=== PATIENT | male | born 1995 | race Two or more races ===

== ENCOUNTER 2018-06-05 14:24 | Emergency (ER) | payer OTHER ==
[2018-06-05] MEDS ORDERED: IBUPROFEN 600 MG TAB PO ONE (15:11)
[2018-06-05] MEDS ORDERED: NS 1,000 ML IV ONE ×3 (15:25→17:02)
--- NOTE | 2018-06-05 15:37 | EDPHY ---
H & P Stated Complaint: chills, body aches, sore throat, cough, fatigue x 6 days Time Seen by Provider: 06/05/18 15:09 HPI/ROS: CHIEF COMPLAINT: Fever, weakness HISTORY OF PRESENT ILLNESS: 22-year-old male presents with fever and weakness . Onset of fever 5 days ago. The fever is associated with sore throat, moderate and persistent. Also has diffuse myalgias, excessive fatigue and intermittent headache. Symptoms temporarily alleviated with ibuprofen, but then return. No cough or shortness of breath. Tolerating oral fluids well. No vomiting or diarrhea. Multiple ill contacts. Was in [place] 6 weeks ago in a large city only, no other travel. REVIEW OF SYSTEMS: complete 10 point ROS reviewed and is negative except for the noted elements in the HPI - Medical/Surgical History Hx Asthma: No Hx Chronic Respiratory Disease: No Hx Diabetes: No Hx Cardiac Disease: No Hx Renal Disease: No Hx Cirrhosis: No Hx Alcoholism: No Hx HIV/AIDS: No Hx Splenectomy or Spleen Trauma: No Other PMH: denies - Social History Smoking Status: Never smoked Additional Social History: Student at [employer] - Physical Exam Exam: General Appearance: Alert, pleasant, nontoxic-appearing Eyes: Pupils equal and round, no conjunctival pallor or injection ENT, Mouth: Mucous membranes dry, pharyngeal erythema Neck: Normal inspection Respiratory: Lungs are clear to auscultation Cardiovascular: Regular tachycardia Gastrointestinal: Abdomen is soft and nontender Neurological: A&O, nonfocal exam Skin: Warm and dry, no rash Extremities: Normal inspection Psychiatric: Mood and affect normal Constitutional: Initial Vital Signs Temperature (C) 37.9 C 06/05/18 14:31 Heart Rate 122 H 06/05/18 14:31 Respiratory Rate 18 06/05/18 14:31 Blood Pressure 99/69 L 06/05/18 14:31 O2 Sat (%) 95 06/05/18 14:31 O2 Delivery Mode Room Air Allergies/Adverse Reactions: No Known Allergies Allergy (Unverified 06/05/18 14:30) Home Medications: Medication Instructions Recorded Azithromycin 06/05/18 Medical Decision Making - Diagnostics Imaging Results: Imaging Impressions Chest X-Ray 06/05/18 15:10 Impression: No acute pulmonary disease. Imaging: I viewed and interpreted images myself ED Course/Re-evaluation: This patient presents with a flu-like illness and dehydration. Initial heart rate 120s. IV normal saline 1 L and ibuprofen 600 mg orally given. Fever persisted so Tylenol 1 g orally given. Ultimately the patient was given 3 L of normal saline and felt much better after IV fluids and fever reduction. Fever instructions given. Will follow up for worsening symptoms or any concerns. Differential Diagnosis: Differential diagnosis includes and no particular order pyelonephritis, cholecystitis, influenza, cellulitis, pneumonia, abscess, meningitis. - Data Points Laboratory Results: Laboratory Results 06/05/18 15:13 06/05/18 15:13 06/05/18 06/05/18 06/05/18 Unknown 15:13 15:13 WBC RBC Hgb Hct MCV MCH MCHC RDW Plt Count MPV Neut % (Auto) Lymph % (Auto) [place] % (Auto) Eos % (Auto) Baso % (Auto) Nucleat RBC Rel Count Absolute Neuts (auto) Absolute Lymphs (auto) Absolute Monos (auto) Absolute Eos (auto) Absolute Basos (auto) Absolute Nucleated RBC Immature Gran % Immature Gran # Sodium Potassium Chloride Carbon Dioxide Anion Gap BUN Creatinine Estimated GFR Glucose Calcium Nasal Influenza A PCR Nasal Influenza B PCR Monoscreen NEGATIVE (NEGATIVE) Group A Strep Screen NEGATIVE (NEGATIVE) Group A Strep DNA Pending 06/05/18 06/05/18 06/05/18 15:13 15:13 14:50 WBC 6.13 10^3/uL 10^3/uL (3.80-9.50) RBC 4.78 10^6/uL 10^6/uL (4.40-6.38) Hgb 13.7 g/dL g/dL (13.7-17.5) Hct 39.8 % L % (40.0-51.0) MCV 83.3 fL fL (81.5-99.8) MCH 28.7 pg pg (27.9-34.1) MCHC 34.4 g/dL g/dL (32.4-36.7) RDW 12.1 % % (11.5-15.2) Plt Count 92 10^3/uL L 10^3/uL (150-400) MPV 11.9 fL H fL (8.7-11.7) Neut % (Auto) 81.6 % H % (39.3-74.2) Lymph % (Auto) 10.9 % L % (15.0-45.0) [place] % (Auto) 6.9 % % (4.5-13.0) Eos % (Auto) 0.0 % L % (0.6-7.6) Baso % (Auto) 0.3 % % (0.3-1.7) Nucleat RBC Rel Count 0.0 % % (0.0-0.2) Absolute Neuts (auto) 5.00 10^3/uL 10^3/uL (1.70-6.50) Absolute Lymphs (auto) 0.67 10^3/uL L 10^3/uL (1.00-3.00) Absolute Monos (auto) 0.42 10^3/uL 10^3/uL (0.30-0.80) Absolute Eos (auto) 0.00 10^3/uL L 10^3/uL (0.03-0.40) Absolute Basos (auto) 0.02 10^3/uL 10^3/uL (0.02-0.10) Absolute Nucleated RBC 0.00 10^3/uL 10^3/uL (0-0.01) Immature Gran % 0.3 % % (0.0-1.1) Immature Gran # 0.02 10^3/uL 10^3/uL (0.00-0.10) Sodium 137 mEq/L mEq/L (135-145) Potassium 3.8 mEq/L mEq/L (3.3-5.0) Chloride 103 mEq/L mEq/L (97-110) Carbon Dioxide 23 mEq/l mEq/l (22-31) Anion Gap 11 mEq/L mEq/L (8-16) BUN 9 mg/dL mg/dL (7-23) Creatinine 0.9 mg/dL mg/dL (0.7-1.3) Estimated GFR > 60 Glucose 141 mg/dL H mg/dL (70-100) Calcium 8.8 mg/dL mg/dL (8.5-10.4) Nasal Influenza A PCR NEGATIVE FOR FLU A (NEGATIVE) Nasal Influenza B PCR NEGATIVE FOR FLU B (NEGATIVE) Monoscreen Group A Strep Screen Group A Strep DNA Medications Given: Discontinued Medications Acetaminophen (Tylenol) 1,000 mg PO EDNOW ONE Stop: 06/05/18 16:04 Last Admin: 06/05/18 16:04 Dose: 1,000 mg Dexamethasone (Decadron) 6 mg PO EDNOW ONE Stop: 06/05/18 17:03 Last Admin: 06/05/18 17:04 Dose: 6 mg Sodium Chloride (Ns) 1,000 mls @ 3,000 mls/hr IV ONCE ONE Stop: 06/05/18 15:44 Last Admin: 06/05/18 15:26 Dose: 1,000 mls Sodium Chloride (Ns) 1,000 mls @ 3,000 mls/hr IV ONCE ONE Stop: 06/05/18 16:22 Last Admin: 06/05/18 16:05 Dose: 1,000 mls Sodium Chloride (Ns) 1,000 mls @ 3,000 mls/hr IV ONCE ONE Stop: 06/05/18 17:21 Last Admin: 06/05/18 17:04 Dose: 1,000 mls Ibuprofen (Motrin) 600 mg PO EDNOW ONE Stop: 06/05/18 15:12 Last Admin: 06/05/18 15:24 Dose: 600 mg Departure - Departure Disposition: Home, Routine, Self-Care Clinical Impression: Viral syndrome Condition: Good Instructions: Viral Syndrome (ED) Additional Instructions: Alternate Tylenol and ibuprofen every 3 hr for fever and pain control. Drink plenty of fluids. Return for worsening symptoms or any concerns. Referrals: Rikki MENDOZA [Clinic] - As per Instructions
[2018-06-05] MEDS ORDERED: ACETAMINOPHEN 500 MG TAB PO ONE (16:03)
[2018-06-05 16:24] LABS: PLATELET COUNT 92 10^3/uL (150-400)
[2018-06-05] MEDS ORDERED: DEXAMETHASONE 4 MG TAB ONE (17:00)
[2018-06-05] MEDS ORDERED: DEXAMETHASONE 4 MG TAB PO ONE (17:02)
[2018-06-05 17:57] VITALS: BP 120/54
== END 2018-06-05 18:00 | disposition home or self-care (01) ==
DX: B33.8 Other specified viral diseases (principal); E86.0 Dehydration

== ENCOUNTER 2018-06-08 16:19 | Inpatient (IN) | payer OTHER ==
[2018-06-08] MEDS ORDERED: NS 1,000 ML IV ONE ×2 (16:31)
--- NOTE | 2018-06-08 16:31 | EDPHY ---
H & P Source: Patient Exam Limitations: No limitations - Medical/Surgical History Hx Asthma: No Hx Chronic Respiratory Disease: No Hx Diabetes: No Hx Cardiac Disease: No Hx Renal Disease: No Hx Cirrhosis: No Hx Alcoholism: No Hx HIV/AIDS: No Hx Splenectomy or Spleen Trauma: No Other PMH: denies - Social History Smoking Status: Never smoked Time Seen by Provider: 06/08/18 16:26 HPI/ROS: HPI: This is a 22-year-old male who presents with Chief Complaint: Headache and fever Location: Back of neck Quality: Pain Duration: 48 hr Signs and Symptoms: + fever, no nausea, no vomiting, no diarrhea, no urinary symptoms, no chest pain, no shortness of breath, no wheezing, no cough, no sore throat, + neck stiffness, no joint pain, no swollen glands, no ear pain, no rash , no ear pain, no nasal congestion Timing: Worsening Severity: Moderate Context: Patient is a student at [employer], presents from [facility] with concerns of meningitis. Started to have a fever TMax 102F. Patient was seen in the clinic on Thursday for fever and headache. Strep test and influenza test along with laboratory studies including blood cultures were ordered. Patient was started on azithromycin. Patient was called on Thursday that his strep and influenza were negative and advised to stop taking the azithromycin which he had taken 3 doses total. Patient reports that he is having fevers at home as high as 103.5 taken orally daily. Patient initially started to have a headache behind both eyes but in the last 48 hr that has moved to the base of his neck and accompanied by neck stiffness. He was again seen at [facility] today and given 1 L of fluid. He reports that ibuprofen makes his headache worse. Tylenol will transiently improve his fever. Patient reports that he had influenza and strep test taken twice and they were negative. Per patient, laboratory studies were "normal" and blood cultures were "inconclusive." Patient traveled from [facility] 1 month ago. Patient denies any altered mental status, photophobia, vomiting, seizures. Modifying Factors: Tylenol Comment: ROS: A comprehensive 10 system review of systems is otherwise negative aside from elements mentioned in the history of present illness. MEDICAL/SURGICAL/SOCIAL HISTORY: Medical history: Generally healthy. Does not take any regular medications. Surgical history: Denies Social history: Never smoked. Family history noncontributory. CONSTITUTIONAL: Ill appearing [place] young adult male, awake and alert, no obvious distress HEENT: Atraumatic and normocephalic, PERRL, EOMI. Nares patent; no rhinorrhea; no nasal mucosal edema. Tympanic membranes clear. Oropharynx clear, no exudate and dry mucous membranes and lips. Airway patent. No lymphadenopathy. + mild nuchal rigidity, negative Kernig sign, positive jolt test, negative Brudzinski's sign. Cardiovascular: Normal S1/S2, regular rate, regular rhythm, without murmur rub or gallop. PULMONARY/CHEST: Symmetrical and nontender. Clear to auscultation bilaterally. Good air movement. No accessory muscle usage. ABDOMEN: Soft, nondistended, nontender, no rebound, no guarding, no peritoneal signs, no masses or organomegaly. No CVAT. EXTREMITIES: 2/2 pulses, strength 5/5, no deformities, no clubbing, no cyanosis or edema. NEUROLOGICAL: no focal neuro deficits. GCS 15. SKIN: Warm and dry, no erythema. no rash. Good capillary refill. ([place],Terra) Constitutional: Initial Vital Signs Temperature (C) 37.2 C 06/08/18 16:26 Heart Rate 98 06/08/18 16:26 Respiratory Rate 16 06/08/18 16:26 Blood Pressure 134/69 H 06/08/18 16:26 O2 Sat (%) 99 06/08/18 16:26 O2 Delivery Mode Room Air Allergies/Adverse Reactions: No Known Allergies Allergy (Verified 06/08/18 16:24) Home Medications: Medication Instructions Recorded NK [No Known Home Meds] 06/08/18 Medical Decision Making - Diagnostics Imaging Results: Imaging Impressions Head CT 06/08/18 16:32 Impression: There is no acute intracranial abnormality identified on this unenhanced CT evaluation. If there is further clinical concern regarding the patient's symptoms, MR imaging is suggested, if not otherwise contraindicated. ED Course/Re-evaluation: Vital signs reviewed and stable upon arrival. No systemic signs. Patient has a headache accompanied by fever neck stiffness. Concern for meningitis. Head CT scan, laboratory studies including blood culture and lactic acid, 1 L IV fluids ordered as received 1 liter at [facility] 165: Lactic acid 2.5. 1716: Called by Dr. Keon, Head CT scan shows no acute intracranial process. 171: Lumbar puncture performed by Dr. Chester. IV Toradol ordered 182: Notified by nurse that temp 39.2C. 1000 mg of Tylenol given. Labs reviewed. WBC 10 K with left shift 1839: CSF fluid shows WBCs 278, neutrophils pending Respiratory pathogen swab ordered 184: ED decision to consult for admission. Spoke with hospitalist, Dr. Cristobal, kindly agrees to admit patient to provide further care. Spoke with Infectious Disease, Dr. Rashard Rooney, who requests ordering West Nile serum and CSF as well as enterovirus. Neutrophil count is pending the time of consultation. If neutrophils are elevated, Dr. Rooney recommends Vancomycin and ceftriaxone but at this time it appears to be predominantly viral nature. 1908: Repeat lactic acid 1.9. CSF shows [address] Rooney on neutrophils and he reports start IV vancomycin and IV ceftriaxone. This patient was seen under the supervision of my secondary supervising physician. I evaluated care for this patient independently. Discussed this patient with Dr. Chester who did see the patient. (Gege Gonzalez) Independent physician evaluation: I evaluated and participated in the management of the patient. I also evaluated the patient independently. My co-signature indicates that I have reviewed this chart and I agree with the findings and plan of care as documented. My personal H&P findings include: The patient presents the emergency department with fever, headache and neck stiffness for the past several days. He was evaluated ordered for without a clear source of his symptoms. Given concerns for possible meningitis he was referred to the ED. The patient does complain of a bifrontal headache and nuchal rigidity. He denies any acute neurologic symptoms. Physical exam: General Appearance: Alert, appears uncomfortable Eyes: Pupils equal and round no pallor or injection ENT, Mouth: Mucous membranes moist Respiratory: There are no retractions, lungs are clear to auscultation Cardiovascular: Regular rate and rhythm Gastrointestinal: Abdomen is soft and nontender, no masses, bowel sounds normal Neurological: A&O, normal motor function, normal sensory exam, normal cranial nerves Skin: Warm and dry, no rashes Musculoskeletal: Mild meningeal symptoms noted with forward flexion Extremities: symmetrical, full range of motion Psychiatric: Patient is oriented X 3, there is no agitation ED course: Noncontrast head CT scan demonstrates no evidence of a space-occupying lesion or abscess. The patient was verbally consented to undergo lumbar puncture which was performed by myself without complication. CSF does demonstrate evidence of a elevated white blood cell count without significant red blood cells. The patient does have a slight left shift. Normal protein and glucose are noted. Consultation was made with Dr. Rooney from Infectious Disease who recommends empiric treatment with vancomycin and ceftriaxone. Additional viral serology testing has been ordered. The patient will be admitted to the hospital service for observation this evening. The case was discussed with Dr. Monika Cristobal at 7:00 p.m. Procedure: Procedure: Lumbar puncture. Indication: headache After verbal informed consent from patient explaining the risks including infection, bleeding, and neurologic damage, a lumbar puncture was performed after the patient was prepped and draped in the usual fashion. The back was anesthetized with 1% lidocaine. Approximately 4 cc of clear fluid was obtained. Opening pressure was not obtained. There were no complications. The procedure was performed by myself. (Vj Chester) Differential Diagnosis: Differential diagnosis includes tension headache, meningitis, encephalitis, viral syndrome, sinusitis, dehydration. (Gege Gonzalez) - Data Points Laboratory Results: Laboratory Results 06/08/18 16:40 06/08/18 16:40 06/08/18 06/08/18 06/08/18 18:30 17:32 17:25 WBC RBC Hgb Hct MCV MCH MCHC RDW Plt Count MPV Neut % (Auto) Lymph % (Auto) [place] % (Auto) Eos % (Auto) Baso % (Auto) Nucleat RBC Rel Count Absolute Neuts (auto) Absolute Lymphs (auto) Absolute Monos (auto) Absolute Eos (auto) Absolute Basos (auto) Absolute Nucleated RBC Immature Gran % Immature Gran # Platelet Estimate VBG Lactic Acid 1.2 mmol/L mmol/L (0.7-2.1) Sodium Potassium Chloride Carbon Dioxide Anion Gap BUN Creatinine Estimated GFR Glucose Calcium Total Bilirubin Conjugated Bilirubin Unconjugated Bilirubin AST ALT Alkaline Phosphatase Total Protein Albumin Fl Pathologist Review Pending CSF Tube Number 1 CSF Appearance CLEAR (CLEAR) CSF Color COLORLESS (COLORLESS) CSF Supernatant TNP CSF WBC 278 /mm3 H /mm3 (0-5) CSF RBC 0 /mm3 /mm3 (0-0) CSF Neutrophils % 65 % H % (0-6) CSF Lymphocytes % 28 % % (0-100) CSF Monos/Macrophage % 7 % % (0-45) CSF Glucose 56 mg/dL mg/dL (50-75) CSF Total Protein 53 mg/dL mg/dL (12-60) CSF West Nile IgG Ab Pending CSF West Nile IgM Ab Pending CSF West Nile Interp Pending West Nile Virus IgG Ab Pending West Nile Virus IgM Ab Pending West Nile Interp Pending Enterovirus Source Pending Enterovirus RNA (PCR) Pending 06/08/18 06/08/18 06/08/18 17:25 16:40 16:40 WBC 10.10 10^3/uL H 10^3/uL (3.80-9.50) RBC 5.13 10^6/uL 10^6/uL (4.40-6.38) Hgb 14.7 g/dL g/dL (13.7-17.5) Hct 43.1 % % (40.0-51.0) MCV 84.0 fL fL (81.5-99.8) MCH 28.7 pg pg (27.9-34.1) MCHC 34.1 g/dL g/dL (32.4-36.7) RDW 12.7 % % (11.5-15.2) Plt Count TNP MPV TNP Neut % (Auto) 84.9 % H % (39.3-74.2) Lymph % (Auto) 9.4 % L % (15.0-45.0) [place] % (Auto) 4.9 % % (4.5-13.0) Eos % (Auto) 0.1 % L % (0.6-7.6) Baso % (Auto) 0.2 % L % (0.3-1.7) Nucleat RBC Rel Count 0.0 % % (0.0-0.2) Absolute Neuts (auto) 8.58 10^3/uL H 10^3/uL (1.70-6.50) Absolute Lymphs (auto) 0.95 10^3/uL L 10^3/uL (1.00-3.00) Absolute Monos (auto) 0.49 10^3/uL 10^3/uL (0.30-0.80) Absolute Eos (auto) 0.01 10^3/uL L 10^3/uL (0.03-0.40) Absolute Basos (auto) 0.02 10^3/uL 10^3/uL (0.02-0.10) Absolute Nucleated RBC 0.00 10^3/uL 10^3/uL (0-0.01) Immature Gran % 0.5 % % (0.0-1.1) Immature Gran # 0.05 10^3/uL 10^3/uL (0.00-0.10) Platelet Estimate Pending VBG Lactic Acid 2.5 mmol/L H mmol/L (0.7-2.1) Sodium Potassium Chloride Carbon Dioxide Anion Gap BUN Creatinine Estimated GFR Glucose Calcium Total Bilirubin Conjugated Bilirubin Unconjugated Bilirubin AST ALT Alkaline Phosphatase Total Protein Albumin Fl Pathologist Review Pending CSF Tube Number 4 CSF Appearance CLEAR (CLEAR) CSF Color COLORLESS (COLORLESS) CSF Supernatant TNP CSF WBC 258 /mm3 H /mm3 (0-5) CSF RBC 0 /mm3 /mm3 (0-0) CSF Neutrophils % 54 % H % (0-6) CSF Lymphocytes % 44 % % (0-100) CSF Monos/Macrophage % 2 % % (0-45) CSF Glucose CSF Total Protein CSF West Nile IgG Ab CSF West Nile IgM Ab CSF West Nile Interp West Nile Virus IgG Ab West Nile Virus IgM Ab West Nile Interp Enterovirus Source Enterovirus RNA (PCR) 06/08/18 16:40 WBC RBC Hgb Hct MCV MCH MCHC RDW Plt Count MPV Neut % (Auto) Lymph % (Auto) [place] % (Auto) Eos % (Auto) Baso % (Auto) Nucleat RBC Rel Count Absolute Neuts (auto) Absolute Lymphs (auto) Absolute Monos (auto) Absolute Eos (auto) Absolute Basos (auto) Absolute Nucleated RBC Immature Gran % Immature Gran # Platelet Estimate VBG Lactic Acid Sodium 137 mEq/L mEq/L (135-145) Potassium 3.7 mEq/L mEq/L (3.3-5.0) Chloride 98 mEq/L mEq/L (97-110) Carbon Dioxide 25 mEq/l mEq/l (22-31) Anion Gap 14 mEq/L mEq/L (8-16) BUN 11 mg/dL mg/dL (7-23) Creatinine 1.0 mg/dL mg/dL (0.7-1.3) Estimated GFR > 60 Glucose 118 mg/dL H mg/dL (70-100) Calcium 8.8 mg/dL mg/dL (8.5-10.4) Total Bilirubin 0.9 mg/dL mg/dL (0.1-1.4) Conjugated Bilirubin 0.2 mg/dL mg/dL (0.0-0.5) Unconjugated Bilirubin 0.7 mg/dL mg/dL (0.0-1.1) AST 29 IU/L IU/L (17-59) ALT 58 IU/L IU/L (21-72) Alkaline Phosphatase 79 IU/L IU/L (38-126) Total Protein 7.5 g/dL g/dL (6.3-8.2) Albumin 3.9 g/dL g/dL (3.5-5.0) Fl Pathologist Review CSF Tube Number CSF Appearance CSF Color CSF Supernatant CSF WBC CSF RBC CSF Neutrophils % CSF Lymphocytes % CSF Monos/Macrophage % CSF Glucose CSF Total Protein CSF West Nile IgG Ab CSF West Nile IgM Ab CSF West Nile Interp West Nile Virus IgG Ab West Nile Virus IgM Ab West Nile Interp Enterovirus Source Enterovirus RNA (PCR) Microbiology Results: MICROBIOLOGY 06/08/18 17:32 Cerebral Spinal Fluid Gram Stain - Final Medications Given: Discontinued Medications Acetaminophen (Tylenol) 1,000 mg PO EDNOW ONE Stop: 06/08/18 18:18 Last Admin: 06/08/18 18:24 Dose: 1,000 mg Sodium Chloride (Ns) 1,000 mls @ 0 mls/hr IV ONCE ONE; Wide Open PRN Reason: Protocol Stop: 06/08/18 16:32 Last Admin: 06/08/18 17:26 Dose: Not Given Sodium Chloride (Ns) 1,000 mls @ 0 mls/hr IV ONCE ONE; Wide Open PRN Reason: Protocol Stop: 06/08/18 16:32 Last Admin: 06/08/18 17:26 Dose: Not Given Sodium Chloride (Ns) 2,700 mls @ 5,400 mls/hr 30 ml/kg infuse over 30 min ( 2700 ml) IV EDNOW ONE PRN Reason: Protocol Stop: 06/08/18 17:20 Last Admin: 06/08/18 16:56 Dose: 2,700 mls Ketorolac Tromethamine (Toradol) 15 mg IVP EDNOW ONE Stop: 06/08/18 17:30 Last Admin: 10/02/18 17:33 Dose: 15 mg Departure - Departure Disposition: [facility] Inpatient Acute Clinical Impression: Meningitis Condition: Fair
[2018-06-08] MEDS ORDERED: NS 2,700 ML IV ONE (16:51)
[2018-06-08] MEDS ORDERED: KETOROLAC 15 MG/1 ML SDV IVP ONE (17:29)
[2018-06-08] MEDS ORDERED: ACETAMINOPHEN 500 MG TAB PO ONE (18:17)
[2018-06-08] MEDS ORDERED: VANCOMYCIN HCL/NORMAL SALINE 250 ML IV ONE (19:09)
--- NOTE | 2018-06-08 19:49 | PDGENHP ---
History and Physical - Chief Complaint Headache and fever - History of Present Illness 22 y/o male presents to ED due to ongoing fever, headaches, and neck stiffness. It began last Thursday. Headache is predominantly located in the back of his head and there are no alleviating or aggravating factors. Tylenol seems to help his fevers but not his headaches. He lost his appetite and has had difficulty sleeping. He denies SOB, chest pains, vision changes, photophobia, seizures. He is being admitted for further diagnostic work-up and pain management. History Information - Allergies/Home Medication List Allergies/Adverse Reactions: No Known Allergies Allergy (Verified 06/08/18 16:24) Home Medications: Acetaminophen [Tylenol ES 500 mg (*)] 1,000 mg PO Q8H PRN 06/08/18 [Last Taken 06/07/18] Ibuprofen [Motrin (*)] 200 mg PO Q6H PRN 06/08/18 [Last Taken 06/07/18] I have personally reviewed and updated: family history, medical history, social history, surgical history - Past Medical History no pertinent PMH - Surgical History Reports: no pertinent surgical hx - Family History Additional family history: Grandfather - Diabetes - Social History Smoking Status: Never smoked Alcohol Use: None Drug Use: None Additional social history: Lives with two roommates off campus Review of Systems Review of Systems: Lab Data and Imaging Reviewed. ROS: 10pt was reviewed & negative except for what was stated in HPI & below Constitutional: Reports: diaphoresis, fever, malaise, weakness EENMT: Reports: no symptoms Cardiac: Reports: no symptoms Respiratory: Reports: no symptoms Gastrointestinal: Reports: no symptoms Genitourinary: Reports: no symptoms Muscolosketal: Reports: neck pain Skin: Reports: no symptoms Neurological: Reports: headache, weakness Hematologic/Lymphatic: Reports: no symptoms Immunologic/Allergy: Reports: no symptoms Physical Exam Physical Exam: Temp Pulse Resp BP Pulse Ox 37.1 C 85 16 125/85 H 96 06/08/18 19:28 06/08/18 19:28 06/08/18 19:28 06/08/18 19:28 06/08/18 19:28 Constitutional: chronically ill appearing Eyes: PERRL, anicteric sclera, EOMI Ears, Nose, Mouth, Throat: moist mucous membranes, hearing normal, ears appear normal, no oral mucosal ulcers Cardiovascular: regular rate and rhythym, no murmur, rub, or gallop, No edema Respiratory: no respiratory distress, no rales or rhonchi, clear to auscultation Gastrointestinal: normoactive bowel sounds, soft, non-tender abdomen, no palpable masses Genitourinary: no bladder fullness, no bladder tenderness Skin: warm, normal color, no rashes or abrasions, no fluctuance, no induration, No mottled Musculoskeletal: full muscle strength, normal joint ROM, no joint effusions Neurologic: AAOx3, sensation intact bilaterally, other (Negative Kernig's and Brudzinski's sign) Psychiatric: interacting appropriately, not anxious, not encephalopathic, thought process linear Lymph, Heme, Immunologic: no cervical LAD, no supraclavicular LAD Lab Data & Imaging Review 06/08/18 16:40 06/08/18 16:40 WBC 10.10 10^3/uL (3.80-9.50) H 06/08/18 16:40 RBC 5.13 10^6/uL (4.40-6.38) 06/08/18 16:40 Hgb 14.7 g/dL (13.7-17.5) 06/08/18 16:40 Hct 43.1 % (40.0-51.0) 06/08/18 16:40 MCV 84.0 fL (81.5-99.8) 06/08/18 16:40 MCH 28.7 pg (27.9-34.1) 06/08/18 16:40 MCHC 34.1 g/dL (32.4-36.7) 06/08/18 16:40 RDW 12.7 % (11.5-15.2) 06/08/18 16:40 Plt Count TNP 06/08/18 16:40 MPV TNP 06/08/18 16:40 Neut % (Auto) 84.9 % (39.3-74.2) H 06/08/18 16:40 Lymph % (Auto) 9.4 % (15.0-45.0) L 06/08/18 16:40 Mcclain % (Auto) 4.9 % (4.5-13.0) 06/08/18 16:40 Eos % (Auto) 0.1 % (0.6-7.6) L 06/08/18 16:40 Baso % (Auto) 0.2 % (0.3-1.7) L 06/08/18 16:40 Nucleat RBC Rel Count 0.0 % (0.0-0.2) 06/08/18 16:40 Absolute Neuts (auto) 8.58 10^3/uL (1.70-6.50) H 06/08/18 16:40 Absolute Lymphs (auto) 0.95 10^3/uL (1.00-3.00) L 06/08/18 16:40 Absolute Monos (auto) 0.49 10^3/uL (0.30-0.80) 06/08/18 16:40 Absolute Eos (auto) 0.01 10^3/uL (0.03-0.40) L 06/08/18 16:40 Absolute Basos (auto) 0.02 10^3/uL (0.02-0.10) 06/08/18 16:40 Absolute Nucleated RBC 0.00 10^3/uL (0-0.01) 06/08/18 16:40 Immature Gran % 0.5 % (0.0-1.1) 06/08/18 16:40 Immature Gran # 0.05 10^3/uL (0.00-0.10) 06/08/18 16:40 VBG Lactic Acid 1.2 mmol/L (0.7-2.1) 06/08/18 18:30 Sodium 137 mEq/L (135-145) 06/08/18 16:40 Potassium 3.7 mEq/L (3.3-5.0) 06/08/18 16:40 Chloride 98 mEq/L (97-110) 06/08/18 16:40 Carbon Dioxide 25 mEq/l (22-31) 06/08/18 16:40 Anion Gap 14 mEq/L (8-16) 06/08/18 16:40 BUN 11 mg/dL (7-23) 06/08/18 16:40 Creatinine 1.0 mg/dL (0.7-1.3) 06/08/18 16:40 Estimated GFR > 60 06/08/18 16:40 Glucose 118 mg/dL (70-100) H 06/08/18 16:40 Calcium 8.8 mg/dL (8.5-10.4) 06/08/18 16:40 Total Bilirubin 0.9 mg/dL (0.1-1.4) 06/08/18 16:40 Conjugated Bilirubin 0.2 mg/dL (0.0-0.5) 06/08/18 16:40 Unconjugated Bilirubin 0.7 mg/dL (0.0-1.1) 06/08/18 16:40 AST 29 IU/L (17-59) 06/08/18 16:40 ALT 58 IU/L (21-72) 06/08/18 16:40 Alkaline Phosphatase 79 IU/L (38-126) 06/08/18 16:40 Total Protein 7.5 g/dL (6.3-8.2) 06/08/18 16:40 Albumin 3.9 g/dL (3.5-5.0) 06/08/18 16:40 CSF Tube Number 1 06/08/18 17:32 CSF Appearance CLEAR (CLEAR) 06/08/18 17:32 CSF Color COLORLESS (COLORLESS) 06/08/18 17:32 CSF Supernatant TNP 06/08/18 17:32 CSF WBC 278 /mm3 (0-5) H 06/08/18 17:32 CSF RBC 0 /mm3 (0-0) 06/08/18 17:32 CSF Neutrophils % 65 % (0-6) H 06/08/18 17:32 CSF Lymphocytes % 28 % (0-100) 06/08/18 17:32 CSF Monos/Macrophage % 7 % (0-45) 06/08/18 17:32 CSF Glucose 56 mg/dL (50-75) 06/08/18 17:32 CSF Total Protein 53 mg/dL (12-60) 06/08/18 17:32 Assessment & Plan Assessment: 22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 headaches, and neck stiffness suggesting acute meningitis, suspecting viral meningitis. Plan: #Viral Meningitis -ID consulted and aware -Broad-spectrum antibiotics initiated and will continue until blood cultures result -Will re-assess choice of antibiotics once blood cultures result #Fever -Continue use of Tylenol PRN -Ice packs OK -IVF -Encourage use of IS -Encourage deep breathing -Encourage oral fluids #Pain -IV/PO medications PRN Diet: Regular Code: Full VTE ppx: Moderate - if tolerated, ambulate. SCDs while in bed. Dispo: Admit to inpatient
[2018-06-08] MEDS ORDERED: ONDANSETRON 4 MG/2 ML VIAL IVP PRN (20:06)
[2018-06-08] MEDS ORDERED: HYDROmorphONE/DILAUDID 1 MG/ML INJ IVP PRN (20:06)
[2018-06-08] MEDS ORDERED: ONDANSETRON DISINTEGRATING 4 MG TAB PO PRN (20:06)
[2018-06-08] MEDS ORDERED: oxyCODONE IR 5 MG TAB PO PRN (20:06)
[2018-06-08] MEDS ORDERED: diphenhydrAMINE 25 MG CAP PO PRN (20:06)
[2018-06-08] MEDS ORDERED: VANCOMYCIN 500 MG in D5W 100 ML IV ONE (20:30)
--- NOTE | 2018-06-08 21:48 | HOSPPROG ---
Hospitalist Progress Note Assessment/Plan: Patient discussed with Toshia Escobar [employer] as well as personally seen and examined by me. Agree with H&P as outlined by Toshia. Patient sitting comfortably in bed. 1. Meningitis - suspect early viral > bacterial - however lots of neutrophils seen in CSF differential -ID consulted - continue IV ceftriaxone and IV Vanco until cultures negative 2. Sepsis - as evidenced by fever, tachycardia, leukocytosis (although mild) -still suspect viral > bacterial but await blood cultures. -lactate cleared with hydration Objective: Vital Signs Temp Pulse Resp BP Pulse Ox 37.1 C 79 16 116/53 L 97 06/08/18 20:00 06/08/18 20:00 06/08/18 20:00 06/08/18 20:00 06/08/18 20:00 Microbiology 06/08/18 19:00 Respiratory Panel (PCR) - Final Nasal, Sinus - Swab No Organism Detected 06/07/18 06/08/18 06/09/18 05:59 05:59 05:59 Intake Total [address] - negative d/w [facility] ER physician regarding ER course Laboratory Tests 06/08/18 06/08/18 17:25 17:32 CSF WBC 258 H 278 H CSF Neutrophils % 54 H 65 H CSF Lymphocytes % 44 28 - Physical Exam Constitutional: no apparent distress, appears nourished, not in pain Cardiovascular: regular rate and rhythym, no murmur, rub, or gallop Respiratory: no respiratory distress, no rales or rhonchi, clear to auscultation Gastrointestinal: normoactive bowel sounds, soft, non-tender abdomen, no palpable masses Skin: no rashes or abrasions, no fluctuance, no induration Neurologic: AAOx3, sensation intact bilaterally Psychiatric: interacting appropriately, not anxious, not encephalopathic, thought process linear ICD10 Worksheet Patient Problems: Problems Problem Status Onset Meningitis Acute
[2018-06-09] MEDS: ACETAMINOPHEN 325 MG TAB PO PRN ×3 (02:40→19:15)
[2018-06-09 05:16] LABS: PLATELET COUNT 169 10^3/uL (150-400)
[2018-06-09] MEDS ORDERED: VANCOMYCIN 1.5 GM in NS 250 ML IV SCH (09:00)
--- NOTE | 2018-06-09 10:45 | GCON ---
INFECTIOUS DISEASE CONSULTATION DATE OF CONSULTATION: 06/09/2018 REFERRING PHYSICIAN: Monika Cristobal MD REASON FOR CONSULTATION: Meningitis. HISTORY OF PRESENT ILLNESS: A 22-year-old healthy male who is attending studying [employer], who was in his usual state of health until approximately 06/02, when he developed daily fevers responsive to Tylenol. Patient in the interim eventually presented to [facility] for his fevers and headaches. He underwent a strep and influenza test, which were negative, and he was prescribed azithromycin. His symptoms did not improve, and he presented to the emergency room 06/05 and was discharged with a diagnosis of viral syndrome. He re-presented on 06/08, with a fever to 103 for ongoing evaluation. Lumbar puncture was performed at that time in which 4 cc of clear fluid was removed. Cell count in tube 2 was 258 with 54% neutrophils, 44% lymphocytes, glucose was 56, protein was 53. The patient was started on ceftriaxone and vancomycin prior to evaluation by Infectious Disease today. The patient travels to [facility] annually. That is where he grew up in [facility]. He was there 1.5 months ago for 10 days. No unusual exposures while he was there. He lives with 2 roommates off campus in [place]. No sick contacts. He denies any recognition of mosquito bites and mostly spends his time watching [employer] or playing pool when he is not studying. PAST MEDICAL HISTORY: Negative. PAST SURGICAL HISTORY: Negative. 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 No tobacco. No alcohol. Travel history as above. FAMILY HISTORY: Negative. ALLERGIES: NKDA. MEDICATIONS: At home none. Ceftriaxone 2 g IV daily, vancomycin 1.5 g q.12. REVIEW OF SYSTEMS: A complete 10-point review of systems was performed and is negative except as mentioned in the HPI. The patient denies any sensation of focal neurologic deficits, rash, GI symptoms, joint swelling. PHYSICAL EXAM: VITAL SIGNS: T current 38.6, blood pressure 117/74, respiratory rate 18, saturation 96% on room air, heart rate 97. GENERAL: This is a pleasant male, lying in bed, in mild distress secondary to headache. HEENT : Extraocular muscles are intact. Pupils are reactive bilaterally. No conjunctival hemorrhages. Oropharynx good. Good dentition. Moist mucous membranes. NECK: Supple. No clear meningismus. CARDIOVASCULAR: Regular rate. No murmur. CHEST: Clear to auscultation bilaterally. ABDOMEN: Soft, nontender. No hepatosplenomegaly. NEUROLOGIC: Patient's cranial nerves were intact without focal deficits and his motor in all 4 extremities was intact. He is alert and oriented x4 with fluent speech. SKIN: No rashes. LABORATORY: Initial white count 10 yesterday. Today 9.2, hematocrit 36, platelets 169. Initial platelets on 06/05 were 92, 80% neutrophils, 12% lymphocytes. CSF as per HPI. West Nile antibody and enterovirus PCR pending in the CSF. [place] screen was negative on 06/05. Blood cultures and CSF cultures from 06/08/2018, are negative. Gram stain of CSF was negative for organisms. IMAGING DATA: Head CT was performed 06/08/2018. That was negative. ASSESSMENT AND PLAN: This is a 22-year-old male with a 10 day illness, subsequently found to have cerebrospinal fluid pleocytosis with normal glucose and protein, most consistent with viral meningitis. Highly unlikely bacterial meningitis as illness has been going on for 10 days plus normal glucose and total protein. Febrile component of illness is a bit longer than typical, as average is 7 to 10 days but illness can be longer. Most likely consideration include enterovirus, WNV . Less likely cytomegalovirus . Monospot was negative 2 days ago. 1. Would discontinue antibiotic therapy. 2. Can discontinue droplet precautions. 3. Would continue supportive care and monitoring of laboratory data. Would add cytomegalovirus, human immunodeficiency virus testing. Thank you for this consultation. Will continue to follow on a daily basis. /[id number]/MODL MTDD
[2018-06-09] MEDS: IBUPROFEN 600 MG TAB PO PRN (11:28)
[2018-06-09] MEDS: NS 1,000 ML IV SCH ×2 (13:23→19:15)
[2018-06-09 13:53] LABS: HIV TYPE 1 AND 2 NEGATIVE (NEGATIVE)
--- NOTE | 2018-06-09 15:17 | ASMTCMCOM ---
CM Note CM Note Notes: Spoke w/RN, pt is a student a [employer] and will dc independent when medically stable. CM available if anything changes. DC Plan: Independent Date Signed: 06/09/2018 03:08 PM Electronically Signed By:Massiel Martinez RN
--- NOTE | 2018-06-09 16:47 | HOSPPROG ---
Hospitalist Progress Note Assessment/Plan: #Viral meningitis: awaiting serologies. ID consulted, discontinued abx. Negative HIV #Sepsis: due to above. IVFs, Advil/APAP for fever #Lactic acidosis: resolved with IVFs #Diet: regular #DVT ppx: low-risk Disp: inpatient admission for ongoing IVFs, serology testing pending Subjective: fatigued, fevers this morning Objective: Vital Signs Temp Pulse Resp BP Pulse Ox 36.6 C 60 14 100/55 L 99 06/09/18 15:45 06/09/18 15:45 06/09/18 15:45 06/09/18 15:45 06/09/18 15:45 Microbiology 06/08/18 19:00 Respiratory Panel (PCR) - Final Nasal, Sinus - Swab No Organism Detected Laboratory Results 06/09/18 04:34 06/08/18 06/09/18 06/10/18 05:59 05:59 05:59 Intake Total 2750 Balance 2750 - Time Spent With Patient Time Spent with Patient: greater than 35 minutes Time Spent with Patient: Greater than 35 minutes spent on this patients care, greater than 50% of time spent counseling, educating, and coordinating care regarding the above mentioned plan. - Physical Exam Constitutional: other (ill-appearing) Ears, Nose, Mouth, Throat: dry mucous membranes Cardiovascular: tachycardia Respiratory: no respiratory distress Gastrointestinal: normoactive bowel sounds Genitourinary: no bladder fullness Skin: warm Musculoskeletal: full muscle strength Neurologic: AAOx3, CN II-XII Intact Psychiatric: interacting appropriately, flat affect ICD10 Worksheet Patient Problems: Problems Problem Status Onset Meningitis Acute
--- NOTE | 2018-06-09 21:13 | PDMN ---
Medical Necessity Medical necessity: Pt meets inpt criteria per MD order and MCG M-221, Meningitis , Suspected or Viral, a-2 days. y/o admitted w/meningitis and sepsis as evidenced by fever, tachycardia, leukocytosis. ID consulted, awaiting serologies , still w/fevers, ongoing IV fluids, anticipate>2MN for ongoing med nec eval/ treatment.
[2018-06-10] MEDS: ACETAMINOPHEN 325 MG TAB PO PRN ×2 (00:10→15:30)
[2018-06-10] MEDS: IBUPROFEN 600 MG TAB PO PRN (04:33)
[2018-06-10] MEDS: NS 1,000 ML IV SCH (04:34)
--- NOTE | 2018-06-10 10:07 | PCMIDPN ---
Assessment/Plan: 1. Aseptic meningitis an otherwise healthy 22-year-old male: Patient is much better. He feels ready to go home. Have asked him to follow up with Sarah next week, and they can call our laboratory to obtain enterovirus and West Nile results. He expressed understanding. The patient has my colleague's card, and understands he can call with any questions moving forward. He expressed understanding. 4 Subjective: Had a low-grade fever last night, but overall feels better and ready to go home. No nausea or vomiting. Denies blurred vision, ringing in his ears, ongoing headache or photophobia. No neck stiffness. No new rashes. No focal weakness, tingling or numbness. Eating breakfast. Objective: No antibiotics T-max 38.2 degrees Vital Signs Temp Pulse Resp BP Pulse Ox 36.4 C 57 L 12 96/43 L 98 06/10/18 07:19 06/10/18 07:19 06/10/18 07:19 06/10/18 07:19 06/10/18 07:19 06/09/18 06/10/18 06/11/18 05:59 05:59 05:59 Intake Total 200 Balance 200 CSF enterovirus PCR and West Nile antibodies pending HIV negative HSV PCR negative in the CSF - Physical Exam General Appearance: alert, no apparent distress EENT: pharynx normal, other (Neck is supple), No photophobia, No thrush Respiratory: lungs clear Cardiac/Chest: regular rate, rhythm Abdomen: normal bowel sounds Skin: No rash Neuro/Psych: no motor/sensory deficits, oriented x 3 ICD10 Worksheet Patient Problems: Problems Problem Status Onset Meningitis Acute
--- NOTE | 2018-06-10 13:28 | GDS ---
DISCHARGE DIAGNOSES: 1. Aseptic meningitis. 2. Fever. 3. Tachycardia. 4. Sepsis. 5. Headache. 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 Symptoms began last Thursday. Headache is in the back of his head. He denies shortness of breath, chest pain, vision change, photophobia, or seizures. HOSPITAL COURSE BY PROBLEM: 1. Aseptic meningitis: HSV, HIV negative. West Nile and CMV are pending. He is to follow up at [facility], who will call Infectious Disease with results. 2. Sepsis: tachycardia, fever, and meningitis. This has since resolved. 3. Lactic acidosis: Due to decreased p.o. intake. Resolved. 4. Tachycardia: Due to fevers, resolved with fluids. DISPOSITION: Patient is stable for discharge home. NEW MEDICATIONS: Advil or Tylenol. FOLLOWUP: [facility] who will call Infectious Disease for remaining culture data. PHYSICAL EXAMINATION: VITAL SIGNS: Today, temperature 36.7, blood pressure is 116/67, heart rate is in the 60s, respirations 12, 99% on room air. GENERAL: He is much brighter today. No acute distress. HEENT: Moist mucous membranes. CV: Regular rhythm. LUNGS: Clear. ABDOMEN: Soft, nontender, nondistended. Positive bowel sounds. : No Harris. MUSCULOSKELETAL: 5/5 upper and lower extremity strength. NEURO: 2 through 12 intact. PSYCH: Alert and oriented x3. Time spent on discharge: Greater than 30 minutes counseling patient on symptom management and followup with Infectious Disease and [facility]. /[id number]/MODL MTDD
[2018-06-10 15:26] VITALS: BP 126/72
== END 2018-06-10 17:54 | disposition home or self-care (01) | DRG 97 ==
LOC: EDUNIT# → F3E 20:04 → OBSVTOIN 06-09 16:45
PROVIDERS: ADMIT Internal Medicine; ATTEND Internal Medicine
PROC: 009U3ZX Drainage of Spinal Canal, Percutaneous Approach, Diagnostic (ICD-10-PCS; principal; 2018-06-08)
DX: G03.0 Nonpyogenic meningitis (principal); A41.9 Sepsis, unspecified organism; E87.2 Acidosis
CPT/HCPCS: 86644-90; 86645-90; 87798-90; 96365; G0378; J0696; J1885; J3370